=== PATIENT | female | born 2000 | race Hispanic/Latino ===

== ENCOUNTER 2025-02-16 03:45 | Emergency (ER) | payer SELFPAY ==
[2025-02-16] MEDS ORDERED: Ketorolac Tromethamine 30 MG (1 mL) VIAL ONE (05:21)
[2025-02-16 05:25] LABS: #Basophils Less than 0.03 10x3/uL (0.0-0.2); #Eosinophils 0.09 10x3/uL (0.0-0.7); #Monocytes 0.75 10x3/uL (0.11-0.59); #Neutrophils 4.80 10x3/uL (1.40-6.50); %Basophils 0.3 % (0.0-1.0); %Eosinophils 1.3 % (0.0-10.0); %Lymphocytes 17.1 % (21.0-51.0); %Monocytes 10.9 % (0.0-10.0); %Neutrophils 70.1 % (42.0-75.0); Hematocrit 39.0 % (36.0-47.0); Hemoglobin 12.8 g/dL (12.0-16.0); Mean Corpuscular Hemoglobin 27.2 pg (27.0-31.0); Mean Corpuscular Volume 82.8 fL (78.0-98.0); Platelet Count 237 10x3/uL (130-400); Red Blood Cell (RBC) Count 4.71 mill/uL (4.20-5.40); White Blood Cell (WBC) Count 6.85 10x3/uL (4.8-10.8)
[2025-02-16 05:36] LABS: BHCG - Serum Negative (NEGATIVE); Pregs Control Background? CLEAR/WHITE (CLR/WHITE); Pregs Control Bar Appear? YES (CONTROL BAR)
[2025-02-16] MEDS ORDERED: Ondansetron PF 4 MG/2 ML Vial ONE (05:45)
[2025-02-16 06:50] LABS: ALT (SGPT) 27 U/L (Less than 34); AST (SGOT) 27 U/L (11-34); Albumin 3.4 g/dL (3.1-4.5); Alkaline Phosphatase 67 U/L (40-110); Anion Gap 15 mmol/L (10-20); BUN (Urea Nitrogen) 8 mg/dL (7.0-18.7); Bilirubin, Total 0.2 mg/dL (0.3-1.2); Calc. Creatinine Clearance 0 mL/min (70-130); Calcium 8.1 mg/dL (7.8-10.44); Carbon Dioxide 16 mmol/L (22-29); Chloride 111 mmol/L (98-107); Globulin 3.4 g/dL (2.4-3.5); Glucose 101 mg/dL (70-105); Potassium 3.6 mmol/L (3.5-5.1); Sodium 138 mmol/L (136-145)
== END 2025-02-16 07:09 | disposition home or self-care (01) ==
LOC: ERS 03:45
DX: J10.1 Influenza due to other identified influenza virus with other respiratory manifestations (principal)
CPT/HCPCS: 80053; 84703; 85025; 87428; 96374; 96375; J1885; J2405